=== PATIENT | female | born 1990 | race Two or more races ===

== ENCOUNTER → 2016-10-28 | Outpatient (CLI) | payer OTHER ==
[~2016-10-28] MED LIST: PRENCAP61 PO
== END | disposition home or self-care (01) ==
LOC: LAB 10:50
PROVIDERS: ATTEND Internal Medicine
DX: Z20.9 Contact with and (suspected) exposure to unspecified communicable disease (principal)
CPT/HCPCS: 86787

== ENCOUNTER 2020-02-17 23:47 | Observation (INO) | payer MEDICAID | END 2020-02-18 00:35 | disposition home or self-care (01) | DRG 566 | LOC: LDRP 23:47 | PROVIDERS: ADMIT Specialist; ATTEND Specialist | DX: O26.892 Other specified pregnancy related conditions, second trimester (principal); R10.33 Periumbilical pain; R10.32 Left lower quadrant pain; Z3A.22 22 weeks gestation of pregnancy | CPT/HCPCS: 59025; 81002; G0378 ==

== ENCOUNTER 2020-05-25 06:40 | Inpatient (IN) | payer BC, MEDICAID ==
[~2020-05-25] VITALS: Ht 144.8 cm; Wt 73.0 kg
[2020-05-25] MEDS ORDERED: PHISODERM TOP SOLN 240ML BTL TOP PRN (07:15)
[2020-05-25] MEDS ORDERED: LACTATED RINGER'S 1,000 ML IV SCH (07:15)
[2020-05-25] MEDS ORDERED: LIDOCAINE 2%HCL (LOCAL ANESTH.) INJ 20ML MDV IJ ONE (07:15)
[2020-05-25] MEDS ORDERED: LACT. RINGERS/OXYTOCIN 20UNITS 1,000 ML IV ONE ×2 (07:17→08:15)
[2020-05-25] MEDS ORDERED: LIDOCAINE 2%HCL (LOCAL ANESTH.) INJ 20ML MDV ONE (07:17)
[2020-05-25 08:02] LABS: Basophils # (auto) 0 10 ^3/uL (0-0.2); Basophils % (auto) 0.3 % (0.0-2.0); Eosinophils # (auto) 0 10 ^3/uL (0-0.8); Hematocrit 42.3 % (36.0-46.0); Hemoglobin 14.4 g/dL (12.2-16.2); Lymphocytes # (auto) 1.4 10 ^3/uL (0.4-5.4); Lymphocytes % (auto) 10.4 % (10.0-50.0); Mean Corpuscular Hemoglobin 30.5 pg (28.0-32.0); Mean Corpuscular Volume 89.7 fL (80.0-100.0); Monocytes # (auto) 0.6 10 ^3/uL (0-1.3); Monocytes % (auto) 4.5 % (0.0-12.0); Neutrophils # (auto) 11.1 10 ^3/uL (1.6-8.6); Neutrophils % (auto) 84.8 % (37.0-80.0); Platelet Count (auto) 191 10^3/uL (140-450); Red Blood Cells 4.72 10^6/uL (4.0-5.20); Red Cell Distribution Width 14.9 % (11.8-14.3); White Blood Cell 13.1 10^3/uL (4.4-10.8)
[2020-05-25 08:10] LABS: Urine Bacteria NONE SEEN /hpf (None Seen); Urine Blood 3+ /uL (Negative); Urine Budding Yeast OCCASIONAL /hpf (None Seen); Urine Mucus FEW (None Seen); Urine Specific Gravity 1.017 (1.001-1.035); Urine WBC 20 /hpf (0 - 5)
[2020-05-25] MEDS ORDERED: ACETAMINOPHEN 325 MG TAB PO PRN (08:15)
[2020-05-25 08:20] LABS: INR 0.92 (0.9-1.15); Partial Thromboplastin Time 26.8 sec (23.0-31.2)
[2020-05-25 08:23] LABS: Potassium 3.3 mmol/L (3.5-5.1)
[2020-05-25 08:23] LABS: Alcohol, Urine < 3.0 mg/dL (0-10); Amphetamine Screen, Urine NEGATIVE (NEGATIVE); Barbiturate Scree,Urine NEGATIVE (NEGATIVE); Benzodiazephine Screen, Urine NEGATIVE (NEGATIVE); Cannabinoid Screen, Urine NEGATIVE (NEGATIVE); Cocaine Screen, Urine NEGATIVE (NEGATIVE); Opiate Scree,Urine NEGATIVE (NEGATIVE); Phencyclidine Screen, Urine NEGATIVE (NEGATIVE)
[2020-05-25 08:31] LABS: Albumin 3.1 g/dL (3.4-5.0); Bilirubin, Total 0.4 mg/dL (0.2-1.0); Calcium 9.1 mg/dL (8.5-10.1); Total Protein 6.8 g/dL (6.4-8.2)
[2020-05-25] MEDS: WITCH HAZEL-GLYCERIN PAD TOP PRN (08:31)
[2020-05-25] MEDS: DERMOPLAST 60ML BOTTLE TOP PRN (08:31)
--- NOTE | 2020-05-25 09:10 | NUR ---
Ambulation: Patient OOB with standby assistance by RN. Patient ambulated to bathroom with steady gait. Patient able to void without difficulty 400ml. Pericare teaching provided with returned demonstration by patient. Clean gown provided and bed linen changed. Patient ambulated back to bed with steady gait and no distress noted.
[2020-05-25] MEDS ORDERED: LACT. RINGERS/OXYTOCIN 20UNITS 1,000 ML IV SCH (09:15)
[2020-05-25 11:17] VITALS: BP 106/57
[2020-05-25 15:00] VITALS: BP 119/60
--- NOTE | 2020-05-25 15:40 | NUR ---
2nd void and ambulation. Patient OOB with standby assistance by RN. Patient ambulated to bathroom with steady gait. Patient able to void without difficulty 500 mL. Pericare teaching reinforced with returned demonstration by patient. Patient ambulated back to bed with steady gait and no distress noted.
[2020-05-25] MEDS: IBUPROFEN 600 MG TAB PO PRN ×2 (16:20→19:47)
[2020-05-25 19:10] VITALS: BP 120/72
[2020-05-25 19:45] VITALS: BP 120/72
[2020-05-25 23:24] VITALS: BP 118/60
[2020-05-26] MEDS: IBUPROFEN 600 MG TAB PO PRN ×3 (00:28→13:15)
[2020-05-26] MEDS: WITCH HAZEL-GLYCERIN PAD TOP PRN (00:44)
[2020-05-26] MEDS: DERMOPLAST 60ML BOTTLE TOP PRN (00:44)
[2020-05-26 03:10] VITALS: BP 130/77
[2020-05-26 05:11] LABS: RPR Non Reactive (Non Reactive)
[2020-05-26 07:06] VITALS: BP 123/77
[2020-05-26 11:00] VITALS: BP 115/77
[2020-05-26 15:00] VITALS: BP 106/60
[2020-05-26 19:30] VITALS: BP 119/79
--- NOTE | 2020-05-26 20:23 | NUR ---
Discharge: Discharge instructions given to mother of baby as ordered. Copies of and hearing screening, along with vaccination record given to mother. Mother encouraged to follow up with Sap Administrator of choice and to give envelope with infants information to [facility] at [facility] office visit. All questions and concerns addressed. Mother of baby verbalized understanding and agreed to comply. Mother of baby encouraged to prepare for departure and notify RN ready to leave room for ID band removal/verification and car seat check.
--- NOTE | 2020-05-26 20:23 | NUR ---
Discharge: Discharge instructions given as ordered. Pt encouraged to follow up with FORENSIC SCIENCE TECHNICIAN as instructed. All questions and concerns addressed. Patient verbalized understanding. Medication reconciliation completed and copy given to patient. All required/requested vaccines given and copies of vaccinations given to patient. Patient encouraged to prepare to depart unit.
--- NOTE | 2020-05-26 21:28 | NUR ---
Discharge: Patient taken to vehicle via wheelchair with all personal belongings, accompanied by staff and family member. No distress noted at time of departure, no adverse changes in status since initial assessment.
== END 2020-05-26 21:28 | disposition home or self-care (01) | DRG 807 ==
LOC: LDRP 06:40 → OBSVTOIN 06:40 → LDRP 07:04
PROVIDERS: ADMIT Obstetrics & Gynecology; ATTEND Obstetrics & Gynecology
PROC: 10E0XZZ Delivery of Products of Conception, External Approach (ICD-10-PCS; principal; 2020-05-25)
PROC: 0KQM0ZZ Repair Perineum Muscle, Open Approach (ICD-10-PCS; 2020-05-25)
DX: O60.14X0 Preterm labor third trimester with preterm delivery third trimester, not applicable or unspecified (principal); Z37.0 Single live birth; Z3A.36 36 weeks gestation of pregnancy; O70.1 Second degree perineal laceration during delivery
CPT/HCPCS: 36415; 59025; 59409; 80053; 80307; 81001; 85025; 85610; 85730; 86592; 86850; 86900; 86901; 96360; 96365; 96366; G0378; J2590

== ENCOUNTER → 2024-09-13 | Outpatient (CLI) | payer BC ==
[2024-09-13 12:06] LABS: Basophils # (auto) 0 10 ^3/uL (0-0.2); Basophils % (auto) 0.4 % (0.0-2.0); Eosinophils # (auto) 0.1 10 ^3/uL (0-0.8); Eosinophils % (auto) 0.8 % (0.0-7.0); Hematocrit 40.7 % (36.0-46.0); Lymphocytes # (auto) 2.4 10 ^3/uL (0.4-5.4); Lymphocytes % (auto) 26.2 % (10.0-50.0); Mean Corpuscular Hemoglobin 29.9 pg (28.0-32.0); Mean Corpuscular Hgb Conc. 34.4 g/dL (32.0-36.0); Mean Corpuscular Volume 86.8 fL (80.0-100.0); Monocytes # (auto) 0.5 10 ^3/uL (0-1.3); Monocytes % (auto) 4.9 % (0.0-12.0); Neutrophils # (auto) 6.2 10 ^3/uL (1.6-8.6); Neutrophils % (auto) 67.7 % (37.0-80.0); Platelet Count (auto) 309 10^3/uL (140-450); Red Blood Cells 4.68 10^6/uL (4.0-5.20); Red Cell Distribution Width 14.1 % (11.8-14.3); White Blood Cell 9.1 10^3/uL (4.4-10.8)
[2024-09-14 08:06] LABS: RPR Non Reactive (Non Reactive)
[2024-09-14 13:28] LABS: Amphetamine Screen, Urine Neg (NEGATIVE); Barbiturate Scree,Urine Neg (NEGATIVE); Benzodiazephine Screen, Urine Neg (NEGATIVE); Cocaine Screen, Urine Neg (NEGATIVE); Opiate Scree,Urine Neg (NEGATIVE); Phencyclidine Screen, Urine Neg (NEGATIVE)
[2024-09-14 13:36] LABS: Cannabinoid Screen, Urine Neg (NEGATIVE)
[2024-09-15 06:06] LABS: Chlamydia Trachomatis, NAA Negative (Negative); Neisseria gonorrhoeae, NAA Negative (Negative)
== END | disposition home or self-care (01) ==
LOC: LAB 11:30
PROVIDERS: ATTEND Obstetrics & Gynecology
DX: O23.40 Unspecified infection of urinary tract in pregnancy, unspecified trimester (principal); Z31.430 Encounter of female for testing for genetic disease carrier status for procreative management; N39.0 Urinary tract infection, site not specified; Z20.09 Contact with and (suspected) exposure to other intestinal infectious diseases; Z3A.00 Weeks of gestation of pregnancy not specified
CPT/HCPCS: 36415; 80307; 83036; 84144; 84702; 85025; 86592; 86703; 86706; 86762; 86850; 86900; 86901; 87086

== ENCOUNTER 2025-01-25 10:46 | Outpatient (CLI) | payer BC ==
[2025-01-25 11:03] LABS: Basophils # (auto) 0 10 ^3/uL (0-0.2); Basophils % (auto) 0.2 % (0.0-2.0); Eosinophils # (auto) 0.1 10 ^3/uL (0-0.8); Eosinophils % (auto) 0.6 % (0.0-7.0); Hematocrit 38.8 % (36.0-46.0); Hemoglobin 13.5 g/dL (12.2-16.2); Lymphocytes # (auto) 1.4 10 ^3/uL (0.4-5.4); Lymphocytes % (auto) 15.8 % (10.0-50.0); Mean Corpuscular Hemoglobin 30.3 pg (28.0-32.0); Mean Corpuscular Hgb Conc. 34.7 g/dL (32.0-36.0); Mean Corpuscular Volume 87.3 fL (80.0-100.0); Monocytes # (auto) 0.5 10 ^3/uL (0-1.3); Monocytes % (auto) 5.2 % (0.0-12.0); Neutrophils # (auto) 7.1 10 ^3/uL (1.6-8.6); Neutrophils % (auto) 78.2 % (37.0-80.0); Platelet Count (auto) 245 10^3/uL (140-450); Red Blood Cells 4.45 10^6/uL (4.0-5.20); Red Cell Distribution Width 13.9 % (11.8-14.3); White Blood Cell 9.1 10^3/uL (4.4-10.8)
== END 2025-01-25 17:00 | disposition home or self-care (01) ==
LOC: LAB 10:46
PROVIDERS: ATTEND Obstetrics & Gynecology
DX: Z34.80 Encounter for supervision of other normal pregnancy, unspecified trimester (principal); Z3A.00 Weeks of gestation of pregnancy not specified
CPT/HCPCS: 36415; 82951; 83036; 85025

== ENCOUNTER 2025-03-21 10:50 | Observation (INO) | payer BC ==
[~2025-03-21] VITALS: Ht 144.8 cm; Wt 74.8 kg
--- NOTE | 2025-03-21 11:42 | DVH ---
CLINICAL HISTORY: Gestational diabetes. COMPARISON: None TECHNIQUE: biophysical profile was performed. Transabdominal sonographic images of the fetus we re obtained. FINDINGS: The fetus is in cephalic position. heart rate measures 152 BPM. Amniotic fluid index measures 14.3 cm. The placenta is anterior in position without visualized evidence for previa or abru ption. BPP profile is an overall score of 8/8, with 2/2 points for breathing, with at least one episode of breathing over a 30 second duration during a 30 minute observation, 2/2 points for m ovements, with 3 or more discrete body or limb movements, 2/2 points for tone, with one or more episodes of extremity extension with return to flexion, or opening and closing of hand, and 2/ 2 points for amniotic fluid, with at least 1 pocket of amniotic fluid that measures 2 cm in 2 perpend icular planes. IMPRESSION: BPP score of 8/8.
[2025-03-21] MEDS ORDERED: NIFE10CA52 PO (12:17)
[2025-03-21] MEDS: NIFEdipine 10 MG CAP PO ONE (12:41)
[2025-03-21] MEDS: TERBUTALINE SULFATE 1 MG/ML 1ML VIAL SC ONE (12:42)
--- NOTE | 2025-03-21 13:00 | DVH ---
OB ULTRASOUND COMPLETE: HISTORY: Cervical length TECHNIQUE: Multiple real-time grayscale images of the gravid uterus with duplex Doppler color flow an d M-mode spectral analysis. FINDINGS: Cervical length measures 3.6 cm. Cervix is closed. IMPRESSION: Closed cervix with cervical length measuring 3.6 cm.
[2025-03-21] MEDS: LACTATED RINGER'S 1,000 ML IV ONE (13:02)
--- NOTE | 2025-03-21 13:52 | DVHDS2 ---
Physician Discharge Progress N Final Diagnosis: testing for GDM, A2 PTL Operations or Procedures: Operations or Procedures 34yo IUP@34.2wks presents for testing and c/o abdominal tightening. +FM, denies VB/UCs/LOF. VSS NST reactive TOCO: initially 3 UCs in 10 min, after treatment no UCs 1L LR IV bolus, terbutaline SQx1, procardia 10mg PO x1 given FKC/PTL precautions reviewed. Dr. Roach consulted, rx sent for procardia 10mg PO Q4hrs until 36 wks. Other Interventions Other Interventions [place] [address] Ph: [phone] DIAGNOSTIC IMAGING Diagnostic Imaging Report : [id number] Signed PATIENT: DILIP BRADSHAWT: [id number] UNIT: [id number] : 1990 LOC: LD ROOM / BED: [facility] / A AGE / SEX: 34 / F ADM STATUS: ADM IN SERVICE 1209 ORDERING PHYSICIAN: KATE LAZARO CNM PROCEDURE(s): OBLTD - OBSTERICAL LIMITED REASON: Cervical length ORDER NUMBER(s): [id number], ACCESSION NUMBER(s): [id number] OB ULTRASOUND COMPLETE: HISTORY: Cervical length TECHNIQUE: Multiple real-time grayscale images of the gravid uterus with duplex Doppler color flow and M-mode spectral analysis. FINDINGS: Cervical length measures 3.6 cm. Cervix is closed. IMPRESSION: Closed cervix with cervical length measuring 3.6 cm. ATED BY: CASIMIRO WELCH MD DICTATED DATE/TIME: 03/21/25 125 SIGNED BY: CASIMIRO WELCH MD SIGNED DATE/TIME: 03/21/25 125 CC: Consultations: Consultations [place] [address] Ph: [phone] DIAGNOSTIC IMAGING Diagnostic Imaging Report : [id number] Signed PATIENT: CLIFF BRADSHAWANTONIETTAT: [id number] UNIT: [id number] : 1990 LOC: LD ROOM / BED: [facility] / A AGE / SEX: 34 / F ADM STATUS: ADM IN SERVICE 1101 ORDERING PHYSICIAN: KATE LAZARO CNM PROCEDURE(s): BPP - BIOPHYSICAL PROFILE REASON: GDMA2 ORDER NUMBER(s): [id number], ACCESSION NUMBER(s): [id number] CLINICAL HISTORY: Gestational diabetes. COMPARISON: None TECHNIQUE: biophysical profile was performed. Transabdominal sonographic images of the fetus were obtained. FINDINGS: The fetus is in cephalic position. heart rate measures 152 BPM. Amniotic fluid index measures 14.3 cm. The placenta is anterior in position without visualized evidence for previa or abruption. BPP profile is an overall score of 8/8, with 2/2 points for breathing, with at least one episode of breathing over a 30 second duration during a 30 minute observation, 2/2 points for movements, with 3 or more discrete body or limb movements, 2/2 points for tone, with one or more episodes of extremity extension with return to flexion, or opening and closing of hand, and 2/2 points for amniotic fluid, with at least 1 pocket of amniotic fluid that measures 2 cm in 2 perpendicular planes. IMPRESSION: BPP score of 8/8. ATED BY: THOMAS COTTON DO DICTATED DATE/TIME: 03/21/25 1140 SIGNED BY: THOMAS COTTON DO SIGNED DATE/TIME: 03/21/25 1140 CC: Condition on Discharge: Stable Disposition: Home Discharge Instructions: Diet: Consistent carbohydrate Activity: See Comment Activity comment: pelvic rest Medications: see med list Follow Up Care: Specialist: f/u in 3 days Discharge Statement: "Patient was advised to return to the ER or call 911 if any headaches, dizziness, shortness of breath, chest pain, abdominal pain, bleeding, fevers, or worsening of medical condition. Patient was counseled about treatment plan, medications, possible side effects, patientverbalized understanding. All questions were answered to the best of my ability. This discharge took greater then 30 minutes in planning, reviewing documentation , counseling the patient, and discussing with other team members." Visit Coding OBGYN Date of Service: Mar 21, 2025 Billing Provider: KATE LAZARO CNM ENTREPRENEURIAL FINANCE PROFESSOR Common Visit Codes: 63035-NIOALFG OBS CARE (HIGH) ENTREPRENEURIAL FINANCE PROFESSOR Procedure Codes: 99812-96- NON-STRESS TEST KATE LAZARO CNM Mar 21, 2025 13:52
== END 2025-03-21 13:47 | disposition home or self-care (01) ==
LOC: UNDOADMOB 10:50 → LDRP 10:50 → UNDODISOB 13:47
PROVIDERS: ADMIT Obstetrics & Gynecology; ATTEND Obstetrics & Gynecology
DX: O24.419 Gestational diabetes mellitus in pregnancy, unspecified control (principal); O60.03 Preterm labor without delivery, third trimester; Z3A.34 34 weeks gestation of pregnancy; Z98.890 Other specified postprocedural states; Z79.899 Other long term (current) drug therapy
CPT/HCPCS: 76815; 76818; 81002; 82948; 94760; 96360; 96372; G0378; J3105; 59025; 76819

== ENCOUNTER 2025-03-25 08:03 | Observation (INO) | payer BC ==
[~2025-03-25 08:03] MED LIST changes: +NIFE10CA52 PO
[2025-03-25] MEDS ORDERED: METF-370 PO (11:24)
--- NOTE | 2025-03-25 12:40 | DVH ---
BIOPHYSICAL PROFILE HISTORY: GDMA2/PTL Comparison Study: US OBSTERICAL LIMITED on DOS: 03/21/25, US BIOPHYSICAL PROFILE on DOS: 03/21/25 TECHNIQUE: Multiple real-time grayscale sonographic images through the gravid uterus of the fetus wi th duplex Doppler color flow and M-mode spectral analysis FINDINGS: BIOPHYSICAL PROFILE: breathing score: movement score: 2 tone score: 2 Quantitative DOMI score: 2 are 142 beats per minute Cephalic presentation. Anterior placenta. Cervix measures 3.7 cm Biophysical 8 of 8
--- NOTE | 2025-03-26 09:04 | DVHDS2 ---
Physician Discharge Progress N Final Diagnosis: GDM 34WKS Operations or Procedures: Operations or Procedures NST REACTIVE REVIWED,SONO Condition on Discharge: Good Disposition: Home Discharge Instructions: Diet: Consistent carbohydrate Activity: See Comment Activity comment: pelvic rest Medications: NA Follow Up Care: Specialist: 3D Discharge Statement: "Patient was advised to return to the ER or call 911 if any headaches, dizziness, shortness of breath, chest pain, abdominal pain, bleeding, fevers, or worsening of medical condition. Patient was counseled about treatment plan, medications, possible side effects, patientverbalized understanding. All questions were answered to the best of my ability. This discharge took greater then 30 minutes in planning, reviewing documentation, counseling the patient, and discussing with other team members." Visit Coding OBGYN Date of Service: Mar 25, 2025 Billing Provider: THEODORE ELLSWORTH DO FENDER MECHANIC Common Visit Codes: 88520-[id number] INP/OBS CARE (HIGH) FENDER MECHANIC Procedure Codes: 13526-51- NON-STRESS TEST THEODORE ELLSWORTH DO Mar 26, 2025 09:04
== END 2025-03-25 12:21 | disposition home or self-care (01) ==
LOC: LDRP 10:45
PROVIDERS: ADMIT Obstetrics & Gynecology; ATTEND Obstetrics & Gynecology
DX: O24.419 Gestational diabetes mellitus in pregnancy, unspecified control (principal); Z3A.34 34 weeks gestation of pregnancy; Z98.890 Other specified postprocedural states; Z79.899 Other long term (current) drug therapy
CPT/HCPCS: 76817; 76818; 81002; 82948; 82962; 94760; G0378; 59025; 76819

== ENCOUNTER 2025-03-28 07:06 | Observation (INO) | payer BC ==
[~2025-03-28 07:06] MED LIST changes: +METF-370 PO
--- NOTE | 2025-03-28 11:53 | DVHDS2 ---
Physician Discharge Progress N Final Diagnosis: testing for GDM, A2/PTL Operations or Procedures: Operations or Procedures 34yo iup@35.2wks VSS NST reactive bpp 03/10 FKC/PTL precautions reviewed Dr. Roach consulted, agrees with POC. Condition on Discharge: Stable Disposition: Home Discharge Instructions: Diet: Consistent carbohydrate Activity: No Restrictions, As Tolerated Medications: SEE MED LIST Follow Up Care: Specialist: f/u in 3 days Discharge Statement: "Patient was advised to return to the ER or call 911 if any headaches, dizziness, shortness of breath, chest pain, abdominal pain, bleeding, fevers, or worsening of medical condition. Patient was counseled about treatment plan, medications, possible side effects, patientverbalized understanding. All questions were answered to the best of my ability. This discharge took greater then 30 minutes in planning, reviewing documentation, counseling the patient, and discussing with other team members." Visit Coding OBGYN Date of Service: Mar 28, 2025 Billing Provider: KATE LAZARO CNM PALEONTOLOGY TEACHER Common Visit Codes: 67908-JZEVCDM OBS CARE (HIGH) PALEONTOLOGY TEACHER Procedure Codes: 33092-35- NON-STRESS TEST KATE LAZARO CNM Mar 28, 2025 11:53
--- NOTE | 2025-03-28 11:55 | DVH ---
BIOPHYSICAL PROFILE HISTORY: GDMA2/PTL TECHNIQUE: Multiple transabdominal real-time grayscale sonographic images through the gravid uterus of the fetus with duplex Doppler color flow and M-mode spectral analysis FINDINGS: BIOPHYSICAL PROFILE: breathing score: 2 movement score: 2 tone score: 2 Quantitative DOMI score: 2 (DOMI: 10.8 Cm.) Total score: 8 The cervix measures 4 cm and appears closed. Single live fetus in cephalic presentation. heart rate 142 beats per minute. Anterior placenta without previa or abruption IMPRESSION: Biophysical profile score: 8
== END 2025-03-28 11:56 | disposition home or self-care (01) ==
LOC: LDRP 10:50 → UNDOADMOB 10:50 → LDRP 11:01 → UNDODISOB 11:56
PROVIDERS: ADMIT Obstetrics & Gynecology; ATTEND Obstetrics & Gynecology
DX: O24.419 Gestational diabetes mellitus in pregnancy, unspecified control (principal); O60.03 Preterm labor without delivery, third trimester; Z3A.35 35 weeks gestation of pregnancy; Z98.890 Other specified postprocedural states
CPT/HCPCS: 76818; 81002; 82948; 82962; 94760; G0378; 76819

== ENCOUNTER 2025-03-31 06:46 | Observation (INO) | payer BC ==
--- NOTE | 2025-04-04 11:15 | DVH ---
CLINICAL HISTORY: Gestational diabetes. COMPARISON: US BIOPHYSICAL PROFILE on DOS: 03/28/25, US BIOPHYSICAL PROFILE on DOS: 03/25/25, US OBSTER ICAL LIMITED on DOS: 03/21/25 TECHNIQUE: biophysical profile was performed. Transabdominal sonographic images of the fetus we re obtained. FINDINGS: The fetus is in cephalic position. heart rate measures 148 BPM. Amniotic fluid index measures 12.6 cm. The placenta is anterior in position without visualized evidence for previa or abru ption. BPP profile is an overall score of 8/8, with 2/2 points for breathing, with at least one episode of breathing over a 30 second duration during a 30 minute observation, 2/2 points for m ovements, with 3 or more discrete body or limb movements, 2/2 points for tone, with one or more episodes of extremity extension with return to flexion, or opening and closing of hand, and 2/ 2 points for amniotic fluid, with at least 1 pocket of amniotic fluid that measures 2 cm in 2 perpend icular planes. IMPRESSION: BPP score of 8/8.
--- NOTE | 2025-04-04 16:35 | DVHDS2 ---
Physician Discharge Progress N Final Diagnosis: testing for GDM, A2 Operations or Procedures: Operations or Procedures 34yo IUP@36.2wks VSS NST reactive FKC/PTL precautions reviewed Dr. Roach consulted, agrees with POC. Other Interventions Other Interventions [address] [address] Ph: [phone] DIAGNOSTIC IMAGING Diagnostic Imaging Report : [id number] Signed PATIENT: OSWALD BRADSHAWACCT: [id number] UNIT: [id number] : 1990 LOC: LD ROOM / BED: [facility] / A AGE / SEX: 34 / F ADM STATUS: ADM IN SERVICE 1047 ORDERING PHYSICIAN: KATE LAZARO CNM PROCEDURE(s): BPP - BIOPHYSICAL PROFILE REASON: GDMA2 ORDER NUMBER(s): [id number], ACCESSION NUMBER(s): [id number] CLINICAL HISTORY: Gestational diabetes. COMPARISON: US BIOPHYSICAL PROFILE on DOS: 03/28/25, US BIOPHYSICAL PROFILE on DOS: 03/25/25, US OBSTERICAL LIMITED on DOS: 03/21/25 TECHNIQUE: biophysical profile was performed. Transabdominal sonographic images of the fetus were obtained. FINDINGS: The fetus is in cephalic position. heart rate measures 148 BPM. Amniotic fluid index measures 12.6 cm. The placenta is anterior in position without visualized evidence for previa or abruption. BPP profile is an overall score of 8/8, with 2/2 points for breathing, with at least one episode of breathing over a 30 second duration during a 30 minute observation, 2/2 points for movements, with 3 or more discrete body or limb movements, 2/2 points for tone, with one or more episodes of extremity extension with return to flexion, or opening and closing of hand, and 2/2 points for amniotic fluid, with at least 1 pocket of amniotic fluid that measures 2 cm in 2 perpendicular planes. IMPRESSION: BPP score of 8/8. ATED BY: THOMAS COTTON DO DICTATED DATE/TIME: 04/04/25 1113 SIGNED BY: THOMAS COTTON DO SIGNED DATE/TIME: 04/04/25 1113 CC: Condition on Discharge: Stable Disposition: Home Discharge Instructions: Diet: Consistent carbohydrate Activity: No Restrictions, As Tolerated Medications: see med list Follow Up Care: Specialist: f/u in 3 days Discharge Statement: "Patient was advised to return to the ER or call 911 if any headaches, dizziness, shortness of breath, chest pain, abdominal pain, bleeding, fevers, or worsening of medical condition. Patient was counseled about treatment plan, medications, possible side effects, patientverbalized understanding. All questions were answered to the best of my ability. This discharge took greater then 30 minutes in planning, reviewing documentation, counseling the patient, and discussing with other team members." Visit Coding OBGYN Date of Service: Apr 04, 2025 Billing Provider: KATE LAZARO CNM SIDE GUIDER Common Visit Codes: 64460-[id number] OBS CARE (HIGH) SIDE GUIDER Procedure Codes: 98728-92- NON-STRESS TEST KATE LAZARO CNM Apr 04, 2025 16:35
== END 2025-04-04 12:04 | disposition home or self-care (01) ==
LOC: UNDOADMOB 04-04 10:43 → LDRP 04-04 10:43
PROVIDERS: ADMIT Student in an Organized Health Care Education/Training Program; ATTEND Student in an Organized Health Care Education/Training Program
DX: O24.419 Gestational diabetes mellitus in pregnancy, unspecified control (principal); Z3A.36 36 weeks gestation of pregnancy; Z79.899 Other long term (current) drug therapy
CPT/HCPCS: 76818; 81002; 82948; 82962; 94760; G0378; 59025; 76819

== ENCOUNTER 2025-04-07 09:42 | Observation (INO) | payer BC, MEDICAID ==
--- NOTE | 2025-04-07 10:39 | DVH ---
BIOPHYSICAL PROFILE HISTORY: GDMA2 TECHNIQUE: Multiple transabdominal real-time grayscale sonographic images through the gravid uterus o f the fetus with duplex doppler color flow and M-mode spectral analysis FINDINGS: BIOPHYSICAL PROFILE: breathing score: 2 movement score: 2 tone score: 2 Quantitative DOMI score: 2 (DOMI: 11.1 cm.) Total score: 8/8 Single live fetus in cephalic presentation. heart rate 137 beats per minute. Anterior placenta without previa or abruption Biophysical profile score 8/8 corresponding to an EDUARDO of 04/30/25 IMPRESSION: Biophysical profile score: 8/8
== END 2025-04-07 11:10 | disposition home or self-care (01) ==
LOC: LDRP 09:42
PROVIDERS: ADMIT Obstetrics & Gynecology; ATTEND Obstetrics & Gynecology
DX: O24.419 Gestational diabetes mellitus in pregnancy, unspecified control (principal); Z3A.36 36 weeks gestation of pregnancy; Z98.890 Other specified postprocedural states
CPT/HCPCS: 59025; 76819; 81002; 82948; 82962; 94760; G0378; 76818

== ENCOUNTER 2025-04-10 06:24 | Observation (INO) | payer BC ==
--- NOTE | 2025-04-10 12:30 | DVH ---
CLINICAL HISTORY: Gestational diabetes. COMPARISON: US BIOPHYSICAL PROFILE on DOS: 04/07/25, US BIOPHYSICAL PROFILE on DOS: 04/04/25, US BIOPHYSI REBECA PROFILE on DOS: 03/28/25 TECHNIQUE: biophysical profile was performed. Transabdominal sonographic images of the fetus we re obtained. FINDINGS: The fetus is in cephalic position. heart rate measures 155 BPM. Amniotic fluid index measures 16.7 cm. The placenta is anterior in position without visualized evidence for previa or abru ption. BPP profile is an overall score of 8/8, with 2/2 points for breathing, with at least one episode of breathing over a 30 second duration during a 30 minute observation, 2/2 points for m ovements, with 3 or more discrete body or limb movements, 2/2 points for tone, with one or more episodes of extremity extension with return to flexion, or opening and closing of hand, and 2/ 2 points for amniotic fluid, with at least 1 pocket of amniotic fluid that measures 2 cm in 2 perpend icular planes. IMPRESSION: BPP score of 8/8.
--- NOTE | 2025-04-10 14:07 | DVHDS2 ---
Discharge Summary Date of Admission Apr 10, 2025 at 11:02 Date of Discharge: Apr 10, 2025 Admitting Diagnosis GDM A1 37 week intrauterine you for NST BPP Wounds: None Labs/Diagnostic Data: Laboratory Results Test 04/10/25 12:39 POC Glucose 79 mg/dl (70-106) Brief Hx & Hospital Course: Patient GDM A1 here for NST performed reassuring BPP performed reassuring Consults/Reason for consult GDMA1 Operations or Procedures none NST and US performed Condition at Discharge: Good Final Diagnosis/Problems List GDM A1 37 week reassuring NST and reassuring Bio physical profile Discharge Disposition: Home SNF Discharge Will this Physician continue t: No Discharge Instruct/Medications Diet: Regular Activity: No Restrictions, As Tolerated Follow Up/Referral: Weekly NST BPP Scheduled Metformin Hydrochloride (Metformin Hcl), 500 MG PO DAILY, (Reported) Nifedipine (Procardia Capsule), 10 MG PO Q4HR Vit W/ Fe Carbonyl-Fe (Pnv-Total), 1 TAB PO DAILY, (Reported) Discharge Statement: "Patient was advised to return to the ER or call 911 if any headaches, dizziness, shortness of breath, chest pain, abdominal pain, bleeding, fevers, or worsening of medical condition. Patient was counseled about treatment plan, medications, possible side effects, patientverbalized understanding. All questions were answered to the best of my ability. This discharge took greater then 30 minutes in planning, reviewing documentation, counseling the patient, and discussing with other team members." DME: Diagnosis: GDM A1 37 wks ASSESSMENT ASSESSMENT Assessment Visit Coding OBGYN Date of Service: Apr 10, 2025 Billing Provider: JUSTIN DE JESUS DO EASTER BUNNY Common Visit Codes: 71637-DWS/OBS SAME DATE (LOW), 70012-VIX/OBS SAME DATE (MOD), 84663-JQU/OBS SAME DATE (HIGH) EASTER BUNNY Procedure Codes: 38033-48- NON-STRESS TEST JUSTIN DE JESUS DO Apr 10, 2025 14:06
== END 2025-04-10 12:52 | disposition home or self-care (01) ==
LOC: LDRP 11:02
PROVIDERS: ADMIT Obstetrics & Gynecology; ATTEND Obstetrics & Gynecology
DX: O24.419 Gestational diabetes mellitus in pregnancy, unspecified control (principal); Z3A.37 37 weeks gestation of pregnancy; Z98.890 Other specified postprocedural states
CPT/HCPCS: 76818; 81002; 82948; 82962; G0378; 59025; 76819

== ENCOUNTER 2025-04-14 10:49 | Observation (INO) | payer BC, SELFPAY ==
--- NOTE | 2025-04-14 11:52 | DVH ---
CLINICAL HISTORY: Gestational diabetes. COMPARISON: US BIOPHYSICAL PROFILE on DOS: 04/10/25, US BIOPHYSICAL PROFILE on DOS: 04/07/25, US BIOPHYSI REBECA PROFILE on DOS: 04/04/25 TECHNIQUE: biophysical profile was performed. Transabdominal sonographic images of the fetus we re obtained. FINDINGS: The fetus is in cephalic position. heart rate measures 138 BPM. Amniotic fluid index measures 17.7 cm. The placenta is anterior in position without evidence of previa or abruption seen. BPP profile is an overall score of 8/8, with 2/2 points for breathing, with at least one episode of breathing over a 30 second duration during a 30 minute observation, 2/2 points for m ovements, with 3 or more discrete body or limb movements, 2/2 points for tone, with one or more episodes of extremity extension with return to flexion, or opening and closing of hand, and 2/ 2 points for amniotic fluid, with at least 1 pocket of amniotic fluid that measures 2 cm in 2 perpend icular planes. IMPRESSION: BPP score of 8/8.
--- NOTE | 2025-04-14 17:29 | DVHDS2 ---
Physician Discharge Progress N Final Diagnosis: GDM 37WKS Operations or Procedures: Operations or Procedures NST REACTIVE REVIEWED Condition on Discharge: Good Disposition: Home Discharge Instructions: Diet: Cardiac 2g Na,low cholest Activity: No Restrictions, As Tolerated Medications: NA Follow Up Care: Specialist: 1W Discharge Statement: "Patient was advised to return to the ER or call 911 if any headaches, dizziness, shortness of breath, chest pain, abdominal pain, bleeding, fevers, or worsening of medical condition. Patient was counseled about treatment plan, medications, possible side effects, patientverbalized understanding. All questions were answered to the best of my ability. This discharge took greater then 30 minutes in planning, reviewing documentation, counseling the patient, and discussing with other team members." Discharge Care Plan Instructions Importance of mobility Visit Coding OBGYN Date of Service: Apr 14, 2025 Billing Provider: THEODORE ELLSWORTH DO FIREARMS SALES ASSOCIATE Common Visit Codes: 46659-[id number] INP/OBS CARE (HIGH) FIREARMS SALES ASSOCIATE Procedure Codes: 40354-78- NON-STRESS TEST THEODORE ELLSWORTH DO Apr 14, 2025 17:29
== END 2025-04-14 12:49 | disposition home or self-care (01) ==
LOC: LDRP 10:49 → UNDOADMOB 10:49 → LDRP 10:58
PROVIDERS: ADMIT Obstetrics & Gynecology; ATTEND Obstetrics & Gynecology
DX: O24.419 Gestational diabetes mellitus in pregnancy, unspecified control (principal); Z3A.37 37 weeks gestation of pregnancy; Z98.890 Other specified postprocedural states
CPT/HCPCS: 76818; 81002; 82948; 82962; G0378; 59025; 76819

== ENCOUNTER 2025-04-15 07:39 | Observation (INO) | payer BC, MEDICAID ==
--- NOTE | 2025-04-16 09:31 | DVHDS2 ---
Physician Discharge Progress N Final Diagnosis: 37WKS LABOR CHECK Operations or Procedures: Operations or Procedures NST REACTIVE REVIWED,SONO Condition on Discharge: Good Disposition: Home Discharge Instructions: Diet: Regular Activity: No Restrictions, As Tolerated Medications: NA Follow Up Care: Specialist: 1W Discharge Statement: "Patient was advised to return to the ER or call 911 if any headaches, dizziness, shortness of breath, chest pain, abdominal pain, bleeding, fevers, or worsening of medical condition. Patient was counseled about treatment plan, medications, possible side effects, patientverbalized understanding. All questions were answered to the best of my ability. This discharge took greater then 30 minutes in planning, reviewing do cumentation, counseling the patient, and discussing with other team members." Visit Coding OBGYN Date of Service: Apr 15, 2025 Billing Provider: THEODORE ELLSWORTH DO CHANGE ATTENDANT Common Visit Codes: [id number] OBS CARE (HIGH) CHANGE ATTENDANT Procedure Codes: 10126-71- NON-STRESS TEST THEODORE ELLSWORTH DO Apr 16, 2025 09:31
== END 2025-04-15 09:07 | disposition home or self-care (01) ==
LOC: LDRP 07:39
PROVIDERS: ADMIT Obstetrics & Gynecology; ATTEND Obstetrics & Gynecology
DX: O46.93 Antepartum hemorrhage, unspecified, third trimester (principal); Z3A.37 37 weeks gestation of pregnancy; Z98.890 Other specified postprocedural states
CPT/HCPCS: 59025; 81002; 94760; G0378

== ENCOUNTER 2025-04-15 23:01 | Inpatient (IN) | payer BC, MEDICAID ==
[~2025-04-15] VITALS: Ht 139.7 cm; Wt 68.3 kg
[2025-04-15] MEDS ORDERED: NALBUPHINE HCL 10 MG/1ml INJECTION IV PRN (23:45)
[2025-04-15] MEDS ORDERED: LIDOCAINE 2%HCL (LOCAL ANESTH.) INJ 20ML MDV IJ PRN (23:45)
--- NOTE | 2025-04-15 23:54 | DVHHP2 ---
OB CC & HPI Date Date of Admission: Apr 15, 2025 Patient Identification: : 3 Para: 2 EDC: Apr 30, 2025 EGA: 37w 6d Chief Complaints: Reason for admission: active labor Admission Nurse Assessment Rev: Yes History of Present Complaints Ms Domenic Powers is a G3,2001 with IUP at 37w 6d , complicated by GDMA2. She reports Contractions that started at 5pm, normal FM, No LOF, no vaginal bleeding. Receiving care with Dr. Roach. Past Medical History Cardiac: No pertinent Hx Pulmonary: No pertinent Hx Central Nervous System: No pertinent Hx GI: No pertinent Hx Hemotology/Oncology: No pertinent Hx Hepatobiliary: No pertinent Hx Psychiatric: No pertinent Hx Musculoskeletal: No pertinent Hx Rheumotologic: No pertinent Hx Infectious Disease: No peritnent Hx ENT: No pertinent Hx Renal/: No pertinent Hx Endocrine: No pertinent Hx Dermatology: No pertinent Hx Past Surgical History: No pertinent Hx OB History OB History Care: Good Care Ultrasounds: Normal mid trimester US Obstetrical Complications: Gestational Diabetes Medical Complications: None Allergies: Coded Allergies: NO KNOWN ALLERGIES (Unverified , 02/06/13) Home Meds Active Scripts Nifedipine (PROCARDIA CAPSULE) 10 Mg Cp, 10 MG PO Q4HR for 14 Days, #84 CAP take until [address] Roach Prov:KATE LAZARO CNLoli 03/21/25 Reported Medications Metformin Hydrochloride (Metformin Hcl) 500 Mg Tab, 500 MG PO DAILY for 30 Days, MG 03/25/25 Vit W/ Fe Carbonyl-Fe (Pnv-Total) Cap, 1 TAB PO DAILY 03/22/13 Current Medications Current Medications Medications (Trade) Dose Ordered Sig/Maribeth Route PRN Reason Start Time Stop Time Status Last Admin Lactated Ringer's 1,000 ml @ 125 mls/hr Q8H IV 04/15/25 23:45 Nalbuphine HCl (Nubain) 10 mg Q4HP PRN IV MODERATE PAIN (4-6 PAIN SCALE) 04/15/25 23:45 Diagnostic Test (Pha) (Accu-Chek Comfort Curve T) 1 strip Q4HR 04/16/25 02:00 Witch [place] (Tucks) 1 pad PRN PRN TOP PERINEAL AREA DISCOMFORT 04/15/25 23:45 Sodium Lauryl Sulfate (Phisoderm) 240 ml PRN PRN TOP PERINEAL AREA DISCOMFORT 04/15/25 23:45 Benzocaine (Dermoplast) 1 applic PRN PRN TOP PERINEAL AREA DISCOMFORT 04/15/25 23:45 Lidocaine HCl (Xylocaine) 40 ml ONCE PRN IJ PERINEAL AREA DISCOMFORT 04/15/25 23:45 Family & Social History Family/Social History Past Family/Social History: Type 2 Diabetes - both parents Blood Type: O+ Rubella: immune RPR/VDRL: Negative GBS Status: Negative HBsAG: Negative Review of Systems Constitutional: No symptom reported Ears, Nose, & Throat: No symptom reported Eyes: No symptom reported Pulmonary/Respiratory: No symptom reported Cardiovascular: No symptom reported Gastrointestinal: No symptom reported Genitourinary: No symptom reported Musculoskeletal: No symptom reported Skin: No symptom reported Psychiatric: No symptom reported Endocrine: No symptom reported Hemotologic/Lymphatic: No symptom reported OB Admission Exam Physical Exam HEENT: TMs Normal, Fontanelles Normal, Nasal Mucosa Normal, Eyes non-injected, Oropharynx Normal, PERRLA, Moist Membranes, EOMI Heart: Rhythm Normal Lungs: Clear Abdomen: Non tender Extremities: Normal Reflexes: Normal Cervical Dilatation: 7cm Effacement: Other (90) Station: 0 Membranes: Intact Heart Rate: 140's Accelerations: Accelerations Present Decelerations: Early Decelerations Nursing Home Variability: Average (6-25) Contractions on Admission: < 5 Minutes Apart Date/Time Contractions Began: 04/15/25@5pm Frequency of Contractions: 5-10minutes Duration: 60secs Intensity: Moderate OB Plan Plan Admitting Diagnosis: IUP at 37w 6d GDMA2 Onset of Labor Active Labor Plan: Expectant Management Other Plan: Plan of care discussed with Patient and partner & her partner Process, Risks, benefits, of available management options discussed, including <> starting with expectant management, <> augmentation if indicated, <> Internal monitoring of UCs & FHT, AROM, amnioinfusion etc only when indicated Patient agrees to starting with expectant management at this time; other interventions as indicated Informed Consent obtained Consent for possible blood transfusion obtained. All questions answered. Admit to Place for Labor / IOL Routine L&D Admission orders EFM per policy Encourage ambulation / frequent position change to facilitate labor & descent Supportive care Anticipate Visit Coding OBGYN Date of Service: Apr 15, 2025 Billing Provider: TERESA BOLAND CNM LANDSCAPE MANAGEMENT TECHNICIAN Common Visit Codes: [id number] INP/OBS CARE (HIGH) LANDSCAPE MANAGEMENT TECHNICIAN Procedure Codes: 39772-74- NON-STRESS TEST TERESA BOLAND CNM Apr 15, 2025 23:54
[2025-04-16 00:06] LABS: Hematocrit 39.4 % (36.0-46.0); Hemoglobin 13.9 g/dL (12.2-16.2); Mean Corpuscular Hemoglobin 30.0 pg (28.0-32.0); Mean Corpuscular Volume 84.8 fL (80.0-100.0); Nucleated Red Blood Cells % 0.1 %
[2025-04-16 00:20] LABS: Alanine Aminotransferase 12 U/L (7-40); Albumin 4.0 g/dL (3.2-4.8); Anion Gap 13 (5-15); BUN/Creatinine Ratio 10.2 (10.0-20.0); Bilirubin, Total 0.4 mg/dL (0.2-1.0); Calcium 8.9 mg/dL (8.7-10.4); Chloride 104 mmol/L (98-107); Potassium 3.8 mmol/L (3.5-5.1); Total Protein 6.8 g/dL (5.7-8.2)
[2025-04-16 00:45] LABS: Alkaline Phosphatase 244 U/L (46-116); Blood Urea Nitrogen 6 mg/dL (9-23); Carbon Dioxide 19 mmol/L (20-31); Glucose 107 mg/dL (74-106); Sodium 136 mmol/L (136-145)
[2025-04-16 00:45] LABS: Amphetamine Screen, Urine Neg (NEGATIVE); Barbiturate Scree,Urine Neg (NEGATIVE); Benzodiazephine Screen, Urine Neg (NEGATIVE); Cannabinoid Screen, Urine Neg (NEGATIVE); Cocaine Screen, Urine Neg (NEGATIVE); Opiate Scree,Urine Neg (NEGATIVE); Phencyclidine Screen, Urine Neg (NEGATIVE)
[2025-04-16] MEDS ORDERED: ONDANSETRON ODT 4 MG TAB PO PRN (00:45)
[2025-04-16 00:50] LABS: Urine Protein, UAD TRACE (Negative)
[2025-04-16 00:52] LABS: INR 0.92 (0.9-1.15); Partial Thromboplastin Time 27.6 SEC (24.5-34.5); Prothrombin Time 9.8 sec (9.3-11.8)
[2025-04-16] MEDS: LIDOCAINE 2%HCL (LOCAL ANESTH.) INJ 20ML MDV ONE (00:57)
[2025-04-16] MEDS: DERMOPLAST 60ML BOTTLE TOP ONE (00:58)
[2025-04-16] MEDS: PHISODERM TOP SOLN 240ML BTL TOP ONE (00:58)
[2025-04-16] MEDS: WITCH HAZEL-GLYCERIN PAD TOP ONE (00:58)
--- NOTE | 2025-04-16 01:10 | LDN2 ---
Labor and Delivery Note Date 04/16/25 Age 34 3 Para 2 AB 0 EDC 04/30/2025 EGA 38w Diagnosis IUP at 38weeks Vaginal Delivery: VTX Vacuum Assisted: No Sex: Male Weight 2955g (6Lbs 8oz) Apgars 8 & 9 at one and five minutes of life respectively Nuchal Cord Transected: No Amniotic Fluid: Clear Episiotomy: No Extension: Yes Repaired with 2-0 Chromic EBL 100mLs Labs Laboratory Tests 09/13/24 11:45: HIV (1&2) Antibody Negative, Rubella Antibody Positive 10/13/12 11:35: Hepatitis B Surface Antigen Negative Blood Bank 09/13/24 11:45: Blood Type O POSITIVE Complications None Conditions Mother and baby stable Snuff Container Inspector Somu Comments/Significant Med Hernan At 0000, 34yo, now delivered a viable Male by w/ Score of 8 and 9 at one & five minutes of life. COURT position Infant placed skin to skin on pts chest. Cord clamped and cut after pulsation ceased. Cord blood sent. Intact 3-vessel cord placenta delivered spontaneously, Sherice. Pitocin IV bolus started. Placenta sent to pathology. Cervix/vagina inspected. Cervix intact. Second degree perineal laceration noted and was repaired with 3-0 chromic suture. Fundus at U, firm, midline, and light lochia. QBL 100ml. VSS. Count correct x2. Patient to care and baby to couplet care, both stable. Rectal mucosa and sphincter intact. Rectal exam performed, WNL, not involved. Visit Coding OBGYN Date of Service: Apr 16, 2025 Billing Provider: TERESA BOLAND CNM GOLF COURSE RANGER Common Visit Codes: [id number] INP/OBS CARE(HIGH) GOLF COURSE RANGER Procedure Codes: 63043-25- NON-STRESS TEST, 27869-HYG DELIVERY ONLY TERESA BOLAND CNM Apr 16, 2025 01:10
[2025-04-16] MEDS ORDERED: ACCU-CHEK COMFORT CURVE STRIP VI SCH (02:00)
[2025-04-16] MEDS: IBUPROFEN 600 MG TAB PO PRN (02:45)
[2025-04-16 02:51] VITALS: BP 147/74; PULSE 63; RESP 18; TEMP 98.4
[2025-04-16] MEDS: LACT. RINGERS/OXYTOCIN 20UNITS 500 ML IV ONE ×2 (03:40→03:42)
[2025-04-16] MEDS: LACT. RINGERS/OXYTOCIN 20UNITS 1,000 ML IV ONE (04:09)
[2025-04-16] MEDS: METHYLERGONOVINE MALEATE 0.2 MG/ML AMP IM ONE (04:09)
[2025-04-16] MEDS: LACTATED RINGER'S 1,000 ML IV SCH (04:10)
[2025-04-16 07:30] VITALS: BP 124/72; PULSE 62; RESP 16; TEMP 98.4; O2SAT 97
[2025-04-16] MEDS: ACETAMINOPHEN 325 MG TAB PO PRN (08:42)
[2025-04-16] MEDS: ACETAMINOPHEN 325 MG TAB PO ONE (08:43)
[2025-04-16 11:30] VITALS: BP 128/58; PULSE 76; RESP 16; TEMP 98.2; O2SAT 97
[2025-04-16 14:40] VITALS: BP 128/79; PULSE 76; RESP 17; TEMP 97.9
[2025-04-16 18:30] VITALS: BP 129/60; PULSE 63; RESP 16; TEMP 98.1; O2SAT 99
[2025-04-16] MEDS: WITCH HAZEL-GLYCERIN PAD TOP PRN (19:19)
--- NOTE | 2025-04-16 21:06 | DVHPN2 ---
Progress Note Date Seen: Apr 16, 2025 Subjective S: Lochia minimal Tolerating regular diet well. Ambulating and voiding well w/o feeling lightheaded or dizzy. Passing flatus but no BM yet. Breast feeding. Contraceptive plan: Desires and requests to be discharged home today Lochia minimal Tolerating regular diet well. Ambulating and voiding well w/o feeling lightheaded or dizzy. Passing flatus but no BM yet. Breast feeding. Contraceptive plan: withdrawal Desires and requests to be discharged home tomorrow vital signs Vital Sign Date Time Temp Pulse Resp B/P (MAP) Pulse Ox O2 Delivery O2 Flow Rate FiO2 04/16/25 18:30 Room Air 04/16/25 18:30 98.1 63 16 129/60 (83) 99 98.1 Total Intake and Output 04/15/25 04/15/25 04/16/25 15:00 23:00 07:00 Output Total 700 ml Balance -700 ml medications Current Medications Medications Dose Ordered Sig/Maribeth Route Start Time Stop Time Status Last Admin Dose Admin Nalbuphine HCl 10 mg Q4HP PRN IV 04/15/25 23:45 Cancel Diagnostic Test (Pha) 1 strip Q4HR 04/16/25 02:00 Cancel Witch [place] 1 pad PRN PRN TOP 04/15/25 23:45 04/16/25 19:19 1 PAD Sodium Lauryl Sulfate 240 ml PRN PRN TOP 04/15/25 23:45 Benzocaine 1 applic PRN PRN TOP 04/15/25 23:45 Lidocaine HCl 40 ml ONCE PRN IJ 04/15/25 23:45 Cancel Ibuprofen 600 mg Q6HP PRN PO 04/16/25 00:45 04/16/25 17:33 600 MG Acetaminophen 650 mg Q4HP PRN PO 04/16/25 00:45 04/16/25 15:15 650 MG Ondansetron HCl 4 mg Q4HPRN PRN PO 04/16/25 00:45 Docusate Sodium 200 mg HS PO 04/16/25 22:00 laboratory and microbiology Laboratory Tests 04/15/25 23:46 Test 04/15/25 23:46 Range/Units Serum Glucose 107 H 74-106 mg/dL Objective Afebrile, VSS Chest: heart and lung sounds normal. Breasts: Nipples intact w/o cracks or soreness Abdomen: normal BS, soft, non-tender, no rebound or guarding, fundus firm @ U- 1, lochia minimal Perineum:- no edema, or erythema, laceration site with sutures intact, edges in good approximation. Extremities: no edema or tenderness Lochia - minimal Assessment/Plan A/P 34 yo now ppd#0 s/p doing well. Blood Type: O Rh: Positive Breast feeding Rubella Immune Pain control with oral medications Bowel regimen: Increase fluid intake and fiber in diet, Laxative PRN PP BCM Plan: Undecided Discharge plan: May discharge home tomorrow if condition remains stable Plan discussed with: Patient Visit Coding OBGYN Date of Service: Apr 16, 2025 Billing Provider: TERESA BOLAND CNM LOAN ADMINISTRATOR Common Visit Codes: [id number] INP/OBS CARE(HIGH) TERESA BOLAND CNM Apr 16, 2025 21:06
[2025-04-16] MEDS: DOCUSATE SOD 100 MG CAP PO SCH (22:00)
[2025-04-16 23:00] VITALS: BP 119/57; PULSE 60; RESP 18; TEMP 98.3; O2SAT 99
--- NOTE | 2025-04-17 00:21 | DVHPN2 ---
Progress Note Date Seen: Apr 17, 2025 Subjective S: Lochia minimal Tolerating regular diet well. Ambulating and voiding well w/o feeling lightheaded or dizzy. Has had BM x1. Breast feeding. Contraceptive plan: Desires and requests to be discharged home today Lochia minimal Tolerating regular diet well. Ambulating and voiding well w/o feeling lightheaded or dizzy. Passing flatus but no BM yet. Breast feeding. Contraceptive plan: Withdrawal Desires and requests to be discharged home today vital signs Vital Sign Date Time Temp Pulse Resp B/P (MAP) Pulse Ox O2 Delivery O2 Flow Rate FiO2 04/16/25 18:30 Room Air 04/16/25 18:30 98.1 63 16 129/60 (83) 99 98.1 medications Current Medications Medications Dose Ordered Sig/Maribeth Route Start Time Stop Time Status Last Admin Dose Admin Nalbuphine HCl 10 mg Q4HP PRN IV 04/15/25 23:45 Cancel Diagnostic Test (Pha) 1 strip Q4HR 04/16/25 02:00 Cancel Witch [place] 1 pad PRN PRN TOP 04/15/25 23:45 04/16/25 19:19 1 PAD Sodium Lauryl Sulfate 240 ml PRN PRN TOP 04/15/25 23:45 Benzocaine 1 applic PRN PRN TOP 04/15/25 23:45 Lidocaine HCl 40 ml ONCE PRN IJ 04/15/25 23:45 Cancel Ibuprofen 600 mg Q6HP PRN PO 04/16/25 00:45 04/16/25 17:33 600 MG Acetaminophen 650 mg Q4HP PRN PO 04/16/25 00:45 04/16/25 23:00 650 MG Ondansetron HCl 4 mg Q4HPRN PRN PO 04/16/25 00:45 Docusate Sodium 200 mg HS PO 04/16/25 22:00 laboratory and microbiology Laboratory Tests 04/15/25 23:46 Test 04/15/25 23:46 Range/Units Serum Glucose 107 H 74-106 mg/dL Objective A&O x3 NAD. Afebrile, VSS Chest: heart and lung sounds normal. Breasts: Nipples intact w/o cracks or soreness Abdomen: normal BS, soft, non-tender, no rebound or guarding, fundus firm @ U- 1, lochia minimal Perineum:- no edema, or erythema, laceration site with sutures intact, edges in good approximation. Extremities: no edema or tenderness Lochia - minimal Assessment/Plan 34yo now ppd#1 s/p doing well. Blood Type: O Rh: Positive Breast feeding Rubella Immune Pain control with oral medications Bowel regimen: Increase fluid intake and fiber in diet, Laxative PRN PP BCM Plan: Withdrawal Discharge plan: May discharge home later today if condition remains stable Plan discussed with: Patient Visit Coding OBGYN Date of Service: Apr 17, 2025 Billing Provider: TERESA BOLAND CNM LOG CHAIN FEEDER Common Visit Codes: [id number] INP/OBS CARE(HIGH) TERESA BOLAND CNM Apr 17, 2025 00:21
--- NOTE | 2025-04-17 00:33 | DVHDS2 ---
Discharge Summary Date of Admission Apr 15, 2025 at 23:20 Date of Discharge: Apr 17, 2025 Admitting Diagnosis IUP at 37w 6d Active Labor GDMA2 Wounds: Laceration with sutures intact Labs/Diagnostic Data: Laboratory Results Test 04/15/25 23:46 04/15/25 23:32 White Blood Count 8.0 10^3/uL (4.4-10.8) Red Blood Count 4.65 10^6/uL (4.0-5.20) Hemoglobin 13.9 g/dL (12.2-16.2) Hematocrit 39.4 % (36.0-46.0) Mean Corpuscular Volume 84.8 fL (80.0-100.0) Mean Corpuscular Hemoglobin 30.0 pg (28.0-32.0) Mean Corpuscular Hemoglobin Concent 35.4 g/dL (32.0-36.0) Red Cell Distribution Width 15.4 % (11.8-14.3) Platelet Count 184 10^3/uL (140-450) Mean Platelet Volume 9.3 fL (6.9-10.8) Neutrophils (%) (Auto) 75.3 % (37.0-80.0) Lymphocytes (%) (Auto) 19.2 % (10.0-50.0) Monocytes (%) (Auto) 4.4 % (0.0-12.0) Eosinophils (%) (Auto) 0.6 % (0.0-7.0) Basophils (%) (Auto) 0.5 % (0.0-2.0) Neutrophils # (Auto) 6.0 10 ^3/uL (1.6-8.6) Lymphocytes # (Auto) 1.5 10 ^3/uL (0.4-5.4) Monocytes # (Auto) 0.3 10 ^3/uL (0-1.3) Eosinophils # (Auto) 0 10 ^3/uL (0-0.8) Basophils # (Auto) 0 10 ^3/uL (0-0.2) Nucleated Red Blood Cells 0.1 % Prothrombin Time 9.8 sec (9.3-11.8) Prothrombin Time INR 0.92 (0.9-1.15) Activated Partial Thromboplast Time 27.6 SEC (24.5-34.5) Sodium Level 136 mmol/L (136-145) Potassium Level 3.8 mmol/L (3.5-5.1) Chloride Level 104 mmol/L (98-107) Carbon Dioxide Level 19 mmol/L (20-31) Anion Gap 13 (5-15) Blood Urea Nitrogen 6 mg/dL (9-23) Creatinine 0.59 mg/dL (0.550-1.02) Glomerular Filtration Rate Calc 121 mL/min (>90) BUN/Creatinine Ratio 10.2 (10.0-20.0) Serum Glucose 107 mg/dL (74-106) Calcium Level 8.9 mg/dL (8.7-10.4) Total Bilirubin 0.4 mg/dL (0.2-1.0) Aspartate Amino Transferase (AST) 19 U/L (13-40) Alanine Aminotransferase (ALT) 12 U/L (7-40) Alkaline Phosphatase 244 U/L (46-116) Total Protein 6.8 g/dL (5.7-8.2) Albumin 4.0 g/dL (3.2-4.8) Treponema pallidum Antibody Non-reactive (Negative) Hepatitis C Antibody Negative (Negative) Urine Color Light-yellow (Yellow) Urine Clarity Clear (Clear) Urine pH 6.5 (5.0-9.0) Urine Specific [place] 1.018 (1.001-1.035) Urine Protein Trace (Negative) Urine Ketones Trace (Negative) Urine Blood 3+ /uL (Negative) Urine Nitrite Negative (Negative) Urine Bilirubin Negative (Negative) Urine Urobilinogen Normal mg/dL (Negative) Urine Leukocyte Esterase 1+ /uL (Negative) Urine RBC 76 /hpf (0 - 4) Urine Microscopic WBC 11 /HPF (0-5) Urine Squamous Epithelial Cells Mod /hpf (<5) Urine Bacteria None seen /hpf (None Seen) Urine Mucus Few (None Seen) Urine Glucose Normal mg/dL (Normal) Urine Opiates Screen Neg (NEGATIVE) Urine Fentanyl Screen Neg (NEGATIVE) Urine Barbiturates Screen Neg (NEGATIVE) Urine Phencyclidine Screen Neg (NEGATIVE) Urine Amphetamines Screen Neg (NEGATIVE) Urine Benzodiazepines Screen Neg (NEGATIVE) Urine Cocaine Screen Neg (NEGATIVE) Urine Cannabinoids Screen Neg (NEGATIVE) Other Laboratory Tests 04/15/25 23:46 Brief Hx & Hospital Course: Ms Domenic Powers was admitted on 04/15/25 at 37w 6d EGA for labor, had GDMA2. She had an uneventful labor, progressed to 2nd stage of labor and had a of a viable baby boy over a 2nd degree perineal laceration. ( See Delivery Note for details) Normal course; meeting milestones w/o any problem or complications. Operations or Procedures Repair of laceration Condition at Discharge: Good Final Diagnosis/Problems List Term - Delivered h/o GDMA2 Discharge Disposition: Home Discharge Instruct/Medications Diet: Regular Diet comment: Routine regular diet rich in fiber, protein, iron and vitamin C with adequate fluid intake. Activity: No Restrictions, As Tolerated Activity comment: Unrestricted. Advance as tolerated. Balance activities with rest periods No heavy lifting, pushing or straining. Pelvic rest x 6weeks Follow Up/Referral: Follow up with OB Provider in 1 week Medications: Ibuprofen 600mg every 6 hours as needed for pain. Continue Vitamin and iron Scheduled Metformin Hydrochloride (Metformin Hcl), 500 MG PO DAILY, (Reported) Nifedipine (Procardia Capsule), 10 MG PO Q4HR Vit W/ Fe Carbonyl-Fe (Pnv-Total), 1 TAB PO DAILY, (Reported) Discharge Statement: self care instructions given. emergency signs and symptoms including but not limited to pre-eclampsia precautions and signs of infection, PPH & of PPD reviewed with patient. Follow up with OB Provider in 1 -2weeks "Patient was advised to return to the ER or call 911 if any headaches, dizziness, shortness of breath, chest pain, abdominal pain, bleeding, fevers, or worsening of medical condition. Patient was counseled about treatment plan, medications, possible side effects, patientverbalized understanding. All questions were answered to the best of my ability. This discharge took greater then 30 minutes in planning, reviewing documentation, counseling the patient, and discussing with other team members." ASSESSMENT ASSESSMENT Hospital Course Ms Domenic Powers was admitted on 04/15/25 at 37w 6d EGA for labor, had GDMA2. She had an uneventful labor, progressed to 2nd stage of labor and had a of a viable baby boy over a 2nd degree perineal laceration. ( See Delivery Note for details) Normal course; meeting milestones w/o any problem or complications. Assessment Term - Delivered h/o GDMA2 Visit Coding OBGYN Date of Service: Apr 17, 2025 Billing Provider: TERESA BOLAND CNM RIGGING LOFT REPAIRER Common Visit Codes: 57643-FFQ/OBS DISCH DAY <30MIN TERESA BOLAND CNM Apr 17, 2025 00:33
[2025-04-17] MEDS: DERMOPLAST 60ML BOTTLE TOP PRN (02:21)
[2025-04-17] MEDS: PHISODERM TOP SOLN 240ML BTL TOP PRN (02:21)
[2025-04-17 03:30] VITALS: BP 114/58; PULSE 61; RESP 18; TEMP 97.8; O2SAT 97
[2025-04-17 07:00] VITALS: BP 128/76; PULSE 61; RESP 14; TEMP 97.7; O2SAT 98
[2025-04-17 11:00] VITALS: BP 126/72; PULSE 65; RESP 16; TEMP 98.5; O2SAT 96
== END 2025-04-17 14:15 | disposition home or self-care (01) | DRG 807 ==
LOC: LDRP 23:01 → OBSVTOIN 23:20 → LDRP 04-16 07:39
PROVIDERS: ADMIT Obstetrics & Gynecology; ATTEND Obstetrics & Gynecology
PROC: 10E0XZZ Delivery of Products of Conception, External Approach (ICD-10-PCS; principal; 2025-04-16)
PROC: 0KQM0ZZ Repair Perineum Muscle, Open Approach (ICD-10-PCS; 2025-04-16)
DX: O24.425 Gestational diabetes mellitus in childbirth, controlled by oral hypoglycemic drugs (principal); Z37.0 Single live birth; O70.1 Second degree perineal laceration during delivery; O24.429 Gestational diabetes mellitus in childbirth, unspecified control; Z3A.37 37 weeks gestation of pregnancy
CPT/HCPCS: 36415; 59025; 59409; 80053; 80307; 81001; 81002; 85025; 85610; 85730; 86780; 86803; 86850; 86900; 86901; 94760; 96360; 96361; 96365; 96366; G0378; J2590

== ENCOUNTER 2025-04-20 11:07 | Emergency (ER) | payer BC, MEDICAID ==
[~2025-04-20] VITALS: Ht 147.3 cm; Wt 72.7 kg
[2025-04-20 11:42] VITALS: BP 136/81; PULSE 75; RESP 18; TEMP 98.5; O2SAT 96
--- NOTE | 2025-04-20 11:43 | ED.PDOC ---
History of Present Illness HPI Comments A 34 YEAR OLD FEMALE PRESENTS TO THE ED WITH COMPLAINT OF WOUND RECHECK. PATIENT STATES SHE GAVE 4 DAYS AGO AND HAD AN EPISIOTOMY AND SUTURES PLACED A RESULT. PATIENT REPORTS SHE WOULD LIKE TO HAVE THIS WOUND CHECKED IN THE ED TODAY. PATIENT DENIES FEVER, CHILLS, SHORTNESS OF BREATH, CHEST PAIN, ABDOMINAL PAIN, NAUSEA, VOMITING, HEADACHE, OR OTHER COMPLAINTS. NO OTHER SYMPTOMS OR MODIFYING FACTORS AT THIS TIME. PATIENT IS ALERT, ORIENTED X 4, AND HAS STEADY GAIT. Chief Complaint: Wound Check Time Seen by MD: 11:16 Reviewed Notes: Nurses Notes, Medications, Allergies Allergies: Coded Allergies: NO KNOWN ALLERGIES (Unverified , 02/06/13) Home Meds Active Scripts Cephalexin Monohydrate (Cephalexin) 500 Mg Cap, 1 CAP PO QID, #28 CAP Prov:GIOVANNA DAVILA 04/20/25 Nifedipine (PROCARDIA CAPSULE) 10 Mg Cp, 10 MG PO Q4HR for 14 Days, #84 CAP take until [address] Roach Prov:KATE LAZARO CNLoli 03/21/25 Reported Medications Metformin Hydrochloride (Metformin Hcl) 500 Mg Tab, 500 MG PO DAILY for 30 Days, MG 03/25/25 Vit W/ Fe Carbonyl-Fe (Pnv-Total) Cap, 1 TAB PO DAILY 03/22/13 Information Source: Patient Mode of Arrival: Ambulatory Severity: Mild Timing: Days Duration: Since onset, Days Prehospital treatment: None Medication Refill: For: Other (EPISIOTOMY WOUND RECHECK) Past Medical History PAST MEDICAL HISTORY: Denies Surgical History: Denies all surgeries PHYSICAL SCIENCES INSTRUCTOR History: No Pertinent PHYSICAL SCIENCES INSTRUCTOR History Family History Family History: Reviewed,noncontributory to illness Social History Smoker: Non-Smoker Alcohol: Denies ETOH Use Drugs: Denies Drug Use Lives In: Home Constitutional: denies: chills, diaphoresis, fatigue, fever, malaise, sweats, weakness, others EENTM: denies: blurred vision, double vision, ear bleeding, ear discharge, ear drainage, ear pain, ear ringing, eye pain, eye redness, hearing loss, mouth pain, mouth swelling, nasal discharge, nose bleeding, nose congestion, nose pain, photophobia, tearing, throat pain, throat swelling, voice changes, others Respiratory: denies: cough, hemoptysis, orthopnea, SOB at rest, shortness of breath, SOB with excertion, stridor, wheezing, others Cardiovascular: denies: chest pain, dizzy spells, diaphoresis, Dyspnea on exertion, edema, irregular heart beat, left arm pain, lightheadedness, palpitations, PND, syncope, others Gastrointestinal: denies: abdomen distended, abdominal pain, blood streaked bowels, constipated, diarrhea, dysphagia, difficulty swallowing, hematemesis, melena, nausea, poor appetite, poor fluid intake, rectal bleeding, rectal pain, vomiting, others Genitourinary: denies: abnormal vagina bleeding, burning, dyspareunia, dysuria, flank pain, frequency, hematuria, incontinence, pain, , vagina discharge, urgency, others Neurological: denies: dizziness, fainting, headache, left sided numbness, left sided weakness, numbness, paresthesia, pre-existing deficit, right sided numbness, right sided weakness, seizure, speech problems, tingling, tremors, weakness, others Musculoskeletal: denies: back pain, gout, joint pain, joint swelling, muscle pain, muscle stiffness, neck pain, others Integumetry: reports: others (EPISIOTOMY WOUND RECHECK); denies: bruises, change in color, change in hair/nails, dryness, laceration, lesions, lumps, rash, wounds Allergic/Immunocompromised: denies: Difficulty Healing, Frequent Infections, Hives, Itching, others Hematologic/Lymphatic: denies: anemia, blood clots, easy bleeding, easy bruising, swollen glands, others Endocrine: denies: excessive hunger, excessive sweating, excessive thirst, excessive urination, flushing, intolerance to cold, intolerance to heat, unexplained weight gain, unexplained weight loss, others Psychiatric: denies: anxiety, bipolar disorder, depression, hopeless, panic disorder, schizophrenia, sleepless, suicidal, others All Other Systems: Reviewed and Negative Physical Exam General Appearance: No Apparent Distress, Normal HEENT: Normal ENT Inspection, PERRL/EOMI, Pharynx Normal, TMs Normal Neck: Full Range of Motion, Non-Tender, Normal, Normal Inspection Respiratory: Chest Non-Tender, Lungs Clear, No Accessory Muscle Use, No Respiratory Distress, Normal Breath Sounds Cardiovascular: No Edema, No JVD, No Murmur, No Gallop, Normal Peripheral Pulses, Regular Rate/Rhythm Breast Exam: Deferred Gastrointestinal: No Organomegaly, Non Tender, No Pulsatile Mass, Normal Bowel Sounds, Soft Genitalia: Normal, Other (EPISIOTOMY SITE WITH SUTURES INTACT, NO PUS DRAINAGE, NO REDNESS OR SWELLING NOTED.) Pelvic: Normal External Exam Rectal: Deferred Extremities: No calf tenderness, Normal capillary refill, Normal inspection, Normal range of motion, Non-tender, No pedal edema Musculoskeletal : Apperance: Normal Neurologic: Alert, industrial commercial groundskeeper II-XII nml as Tested, No Motor Deficits, Normal Affect, Normal Mood, No Sensory Deficits Cerebellar Function: Normal Reflexes: Normal Skin: Dry, Normal Color, Warm Peripheral Pulses: 2+ carotid (R), 2+ carotid (L) Lymphatic: No Adenopathy Was a procedure done? Was a procedure done?: No Differential Dx Considerations may include: EPISIOTOMY WOUND RECHECK, WOUND INFECTION X-Ray, Labs, Meds, VS Vital Signs Date Time Temp Pulse Resp B/P (MAP) Pulse Ox O2 Delivery O2 Flow Rate FiO2 04/20/25 11:42 75 18 96 Room Air* 0 21 04/20/25 11:42 98.5 75 18 136/81 (99) 96 98.5 04/20/25 11:14 97.9 69 16 137/89 97 97.9 X-Ray, Labs, Meds, VS Comment EXTERNAL MEDICAL RECORDS REVIEWED: [NONE] INDEPENDENT HISTORIANS: [NONE] SOCIAL DETERMINANTS OF HEALTH: [NONE] LABS ORDERED: NONE REVIEWED AND INTERPRETED RESULTS: NONE IMAGING ORDERED: NONE TREATMENTS ORDERED: NONE PROCEDURES PERFORMED: NONE CRITICAL CARE TIME: NONE I HAVE DISCUSSED THE PATIENT WITH THE ATTENDING PHYSICIAN DR. BEAN AND HE AGREES WITH THE PATIENT'S PLAN OF CARE AND DISPOSITION. BASED ON HISTORY OF PRESENT ILLNESS, AND PHYSICAL EXAM, PATIENT WILL BE DISCHARGED HOME. DISCUSSED PLAN FOR DISCHARGE HOME WITH RX [KEFLEX]. MEDICATION WARNINGS GIVEN. SHARED DECISION MAKING: DISCUSSED WITH PATIENT THAT THEIR WORKUP WAS NORMAL. PATIENT INSTRUCTED TO FOLLOW UP WITH PRIMARY CARE PROVIDER IN 1-2 DAYS FOR RE- EVALUATION OF SYMPTOMS. PATIENT VERBALIZES UNDERSTANDING TO RETURN TO ED FOR NEW OR WORSENING SYMPTOMS OR IF FOLLOW UP WITH PCP CANNOT BE OBTAINED. PATIENT FEELS COMFORTABLE GOING HOME AT THIS TIME. ALL QUESTIONS ADDRESSED AT TIME OF DISCHARGE. Time of 1ST Reevaluation: 12:10 Reevaluation 1ST: Improved Patient Education/Counseling: Diagnosis, Treatment, Need For Follow Up Family Education/Counseling: Diagnosis, Treatment, Need For Follow Up Medical Screening: No EMC Exist At This Time SEPSIS Sepsis Screen Date sepsis recognized/suspect: Apr 20, 2025 Time Sepsis recognized/suspect: 1117 Recent Procedure: Yes On Antibiotic Therapy: No Respiratory Rate >20: No Heart Rate >90: No Temp<36 C (96.8 F) or >38.3 C: No SBP <90 or MAP <65 mmHG: No New Acute Mental Status Change: No Is the patient on CPAP, BIPAP,: No Vital Signs Date Time Temp Pulse Resp B/P (MAP) Pulse Ox O2 Delivery O2 Flow Rate FiO2 04/20/25 11:42 75 18 96 Room Air* 0 21 04/20/25 11:42 98.5 75 18 136/81 (99) 96 98.5 04/20/25 11:14 97.9 69 16 137/89 97 97.9 Departure 1 Departure Time of Disposition: 12:10 Impression: Primary Impression: Encounter for wound re-check Disposition: 01 HOME / SELF CARE / HOMELESS Condition: Stable Additional Instructions: FOLLOW-UP WITH PCP IN 1 TO 2 DAYS. RETURN TO ED FOR ANY NEW OR WORSENING SYMPTOMS. e-Prescriptions Cephalexin Monohydrate (Cephalexin) 500 Mg Cap 1 CAP PO QID, #28 CAP Prov: GIOVANNA DAVILA 04/20/25 Discharged With: Self, Spouse Critical Care Note Critical Care Time?: No Stability Stability form required: No I personally scribed for GIOVANNA DAVILA ([email or web address]) on 04/20/25 at 11:43. Electronically submitted by Pedro Steinberg ([email or web address]). I personally scribed for GIOVANNA DAVILA ([email or web address]) on 04/20/25 at 11:45. Electronically submitted by Pedro Steinberg ([email or web address]). GIOVANNA DAVILA Apr 20, 2025 11:43
[2025-04-20] MEDS ORDERED: CEPH500C PO (11:47)
== END 2025-04-20 11:53 | disposition home or self-care (01) ==
LOC: ER 11:07
DX: Z48.00 Encounter for change or removal of nonsurgical wound dressing (principal); Z79.84 Long term (current) use of oral hypoglycemic drugs; Z79.899 Other long term (current) drug therapy